=== PATIENT | female | born 1955 | race Caucasian/White ===

== ENCOUNTER 2021-09-22 18:58 | Inpatient (IN) ==
[2021-09-22] MEDS ORDERED: Morphine Sulfate 2 MG/ML SYRINGE IVP ONE (21:57)
[2021-09-22] MEDS ORDERED: Melatonin 3 MG TABLET PO PRN (22:15)
[2021-09-22] MEDS ORDERED: Naloxone 0.4 MG/ML INJ IVP PRN (22:15)
[2021-09-22 22:22] LABS: ABG Base Excess -3 mEq/L (-2 to 3); ABG HCO3 21 mEq/L (21-27); ABG Oxygen Saturation 100 % (95-98); ABG PCO2 35 mmHg (35-45); ABG PH 7.39 pH Units (7.32-7.45); ABG PO2 214 mmHg (85-104); ABG TCO2 22 mEq/L (20-26); Blood Gas Modality CPAP/PS; Blood Gas Pressure Support 10 cm H2O
[2021-09-22] MEDS ORDERED: *HR* LORazepam 2 MG/ML VIAL IVP PRN (22:39)
[2021-09-22] MEDS ORDERED: *HR* Heparin 5,000 UNIT/ML VIAL IVP PRN ×2 (23:07)
[2021-09-22] MEDS ORDERED: Dextrose Gel 15 GM/37.5 ML TUBE PO PRN ×2 (23:25)
[2021-09-22] MEDS ORDERED: D5% in Water 1,000 ML IVC PRN (23:25)
[2021-09-22] MEDS ORDERED: *HR* Dextrose 50 % in Water (Syg) 50 ML SYRINGE IVP PRN (23:25)
[2021-09-22 23:26] LABS: Hematocrit 37.1 % (35.3-44.9); Hemoglobin 12.5 g/dL (11.5-15.4); Immature Granulocytes % 0.3 % (0-4); Lymphocytes # 0.2 K/mcL (0.6-4.6); Mean Corpuscular HGB Conc 33.7 g/dL (31.6-35.5); Mean Corpuscular Hemoglobin 32.2 pg (28.0-33.3); Mean Corpuscular Volume 95.6 fL (83.0-100.0); Mean Platelet Volume 10.4 fL (9.4-12.4); Monocytes # 0.1 K/mcL (0.0-1.3); Monocytes % 1.8 %; Neutrophils # 6.4 K/mcL (1.6-8.9); Platelet Count 116 K/mcL (140-400); Red Blood Count 3.88 M/mcL (3.82-4.97); Red Cell Distribution Width 16.1 % (11.5-14.5); Segmented Neutrophils % 94.9 %; White Blood Count 6.7 K/mcL (4.3-11.1)
[2021-09-22] MEDS ORDERED: Dexamethasone Sodium Phos/PF 10 MG/ML VIAL IVP STA (23:27)
[2021-09-22 23:28] LABS: Heparin anti-factor XA UFH 0.85 IU/mL (0.30-0.70)
[2021-09-22 23:29] LABS: Prothrombin Time 11.6 Seconds (9.4-12.1)
[2021-09-22 23:31] LABS: Activated Partial Thrombo Time 74.7 Seconds (26.0-36.0)
[2021-09-22 23:33] LABS: VBG Ionized Calcium 1.09 mmol/L (1.15-1.35)
[2021-09-22] MEDS: Heparin 25,000UNIT/250ML 1/2NS 25,000 UNIT/250 ML IV.SOLN IVC SCH (23:53)
[2021-09-23] MEDS: Ipratropium 1 PUFF INHALER IH SCH ×6 (00:03→20:05)
[2021-09-23 00:54] LABS: Alanine Aminotransferase 69 Units/L (7-52); Albumin 3.8 g/dL (3.5-5.7); Albumin/Globulin Ratio 1.2 (1.1-2.2); Alkaline Phosphatase 87 Units/L (34-104); Aspartate Amino Transferase 110 Units/L (13-39); BUN/Creatinine Ratio 28 (6-26); Bilirubin,Total 0.3 mg/dL (0.3-1.0); Blood Urea Nitrogen 39 mg/dL (8-23); C-Reactive Protein 167 mg/L (Less than 10); Calcium 8.5 mg/dL (8.6-10.3); Carbon Dioxide 18 mEq/L (23-29); Chloride 109 mEq/L (98-107); Ferritin > 1500 ng/mL (10-120); Globulin 3.1 g/dL (2.4-3.5); Glucose 180 mg/dL (70-105); Lactate Dehydrogenase 610 Units/L (140-271); Magnesium 2.2 mg/dL (1.6-2.6); Osmolality,Calculated 302 (280-300); Phosphorous 2.6 mg/dL (2.7-4.5); Sodium 139 mEq/L (136-145); Total Protein 6.9 g/dL (6.4-8.9); eGFR For African Americans 46 (> 60); eGFR For Non-African Americans 38 (> 60)
[2021-09-23] MEDS ORDERED: Calcium Gluconate 1gm/50mL 1 GM/50 ML BAG IVPB ONE (01:59)
[2021-09-23] MEDS ORDERED: Perflutren Lipid Microsphere 1.3 ML in 0.9 % Sodium Chloride 8.7 ML IVP PRN (03:08)
[2021-09-23 03:14] LABS: Estimated Average Glucose 126 mg/dl
[2021-09-23 03:17] LABS: Prothrombin Time 11.6 Seconds (9.4-12.1)
[2021-09-23 03:19] LABS: Activated Partial Thrombo Time 72.3 Seconds (26.0-36.0)
[2021-09-23] MEDS ORDERED: Acetaminophen 325 MG TABLET PO PRN (04:05)
[2021-09-23 04:24] LABS: Hematocrit 40.6 % (35.3-44.9); Hemoglobin 12.9 g/dL (11.5-15.4); Immature Granulocytes % 0.6 % (0-4); Immature Platelets 6.7 % (1.1-6.1); Lymphocytes # 0.3 K/mcL (0.6-4.6); Lymphocytes % 3.8 %; Mean Corpuscular HGB Conc 31.8 g/dL (31.6-35.5); Mean Corpuscular Hemoglobin 31.2 pg (28.0-33.3); Mean Corpuscular Volume 98.1 fL (83.0-100.0); Mean Platelet Volume 10.6 fL (9.4-12.4); Monocytes # 0.1 K/mcL (0.0-1.3); Neutrophils # 6.3 K/mcL (1.6-8.9); Platelet Count 121 K/mcL (140-400); Red Blood Count 4.14 M/mcL (3.82-4.97); Red Cell Distribution Width 16.3 % (11.5-14.5); Segmented Neutrophils % 93.6 %; White Blood Count 6.7 K/mcL (4.3-11.1)
[2021-09-23 04:32] LABS: Alanine Aminotransferase 70 Units/L (7-52); Albumin 3.8 g/dL (3.5-5.7); Albumin/Globulin Ratio 1.1 (1.1-2.2); Alkaline Phosphatase 85 Units/L (34-104); Aspartate Amino Transferase 106 Units/L (13-39); BUN/Creatinine Ratio 26 (6-26); Bilirubin,Total 0.3 mg/dL (0.3-1.0); Blood Urea Nitrogen 35 mg/dL (8-23); C-Reactive Protein 199 mg/L (Less than 10); Calcium 8.9 mg/dL (8.6-10.3); Carbon Dioxide 23 mEq/L (23-29); Chloride 109 mEq/L (98-107); Chol/HDL Ratio 3.4 (0-4.9); Cholesterol 126 mg/dL (< 200); Ferritin > 1500 ng/mL (10-120); Globulin 3.4 g/dL (2.4-3.5); Glucose 173 mg/dL (70-105); HDL Cholesterol 37 mg/dL (40-59); LDL Cholesterol,Calculated 63 mg/dL (< 100); Lactate Dehydrogenase 622 Units/L (140-271); Magnesium 2.2 mg/dL (1.6-2.6); Osmolality,Calculated 304 (280-300); Phosphorous 2.8 mg/dL (2.7-4.5); Potassium 4.6 mEq/L (3.5-5.1); Sodium 141 mEq/L (136-145); Total Protein 7.2 g/dL (6.4-8.9); Triglycerides 131 mg/dL (< 150); Troponin I 0.69 ng/mL (< 0.04); eGFR For African Americans 47 (> 60); eGFR For Non-African Americans 39 (> 60)
[2021-09-23] MEDS: Meropenem 1,000 MG in 0.9 % Sodium Chloride Mini Bag 100 ML IVPB SCH ×2 (06:53→17:32)
[2021-09-23] MEDS ORDERED: Remdesivir 200 MG in 0.9 % Sodium Chloride 100 ML IVPB ONE (08:00)
[2021-09-23] MEDS: Artificial Tears SOLN 15 ML BOTTLE BOTH EYES SCH ×4 (08:19→19:56)
[2021-09-23] MEDS: Chlorhexidine Rinse 15 ML MOUTHWASH MM SCH ×2 (08:19→19:56)
[2021-09-23] MEDS: Saline Nasal Spray 44 ML BOTTLE NS SCH ×4 (08:19→19:56)
[2021-09-23] MEDS: Saliva Stimulant 44.3ml BOTTLE PO SCH ×4 (08:19→19:56)
[2021-09-23] MEDS: Dexamethasone Sodium Phos/PF 10 MG/ML VIAL IVP SCH (08:20)
[2021-09-23] MEDS: Pantoprazole 40 MG VIAL IVP SCH (08:20)
[2021-09-23] MEDS: Acetylcysteine 10% 2 ML INHSOL IH SCH ×3 (08:39→20:58)
[2021-09-23] MEDS: Budesonide/Formoterol 160/4.5 1 PUFF INH IH SCH ×2 (09:04→20:05)
[2021-09-23 09:45] LABS: Troponin I 0.55 ng/mL (< 0.04)
[2021-09-23 10:28] LABS: Amorphous Sediment,Urine Few per hpf (None-Few); Bacteria,Urine Few per hpf (None-Few); Bilirubin,Urine Negative (Negative); Blood,Urine Moderate (Negative); Clarity,Urine Clear (Clear); Color,Urine Light-Yellow (Yellow); Glucose,Urine (UA) Normal (Normal); Ketones,Urine Negative (Negative); Leukocyte Esterase,Urine Negative (Negative); Mucus,Urine Few per lpf (None-Few); Nitrite,Urine Negative (Negative); Protein,Urine 70 mg/dL (Neg-Trace); RBC,Urine 30-50 per hpf (0-3); Specific Gravity,Urine > 1.030 (1.010-1.025); Squamous Epithelial Cell,Urine Few per hpf (None-Few); Urobilinogen,Urine Normal (Normal)
[2021-09-23] MEDS: Aspirin 81 MG TAB.CHEW PO SCH (11:26)
[2021-09-23] MEDS: Metoprolol XL (24 HR) Succ 25 MG TAB.ER.24H PO SCH (11:26)
[2021-09-23] MEDS: Lactobacillus 1 EACH CAP.SPRINK PO SCH ×2 (11:26→19:56)
[2021-09-23] MEDS: Morphine Sulfate 2 MG/ML SYRINGE IVP PRN ×2 (12:35→20:19)
[2021-09-23 12:41] LABS: Triiodothyronine (T3) Total 50 ng/dL (87-178)
[2021-09-24] MEDS: Ipratropium 1 PUFF INHALER IH SCH ×7 (00:01→23:52)
[2021-09-24 04:25] LABS: ABG Base Excess 0 mEq/L (-2 to 3); ABG HCO3 25 mEq/L (21-27); ABG Oxygen Saturation 94 % (95-98); ABG PCO2 41 mmHg (35-45); ABG PO2 72 mmHg (85-104); ABG TCO2 26 mEq/L (20-26); Blood Gas Modality CPAP/PS; Blood Gas Pressure Support 10 cm H2O
[2021-09-24] MEDS: Meropenem 1,000 MG in 0.9 % Sodium Chloride Mini Bag 100 ML IVPB SCH (05:33)
[2021-09-24 06:17] LABS: Heparin anti-factor XA UFH 0.41 IU/mL (0.30-0.70)
[2021-09-24 06:28] LABS: Alanine Aminotransferase 51 Units/L (7-52); Albumin 3.8 g/dL (3.5-5.7); Albumin/Globulin Ratio 1.2 (1.1-2.2); Alkaline Phosphatase 90 Units/L (34-104); Aspartate Amino Transferase 71 Units/L (13-39); Bilirubin,Direct 0.1 mg/dL (0.0-0.2); Bilirubin,Indirect 0.3 mg/dL (0.0-1.0); Bilirubin,Total 0.4 mg/dL (0.3-1.0); Globulin 3.1 g/dL (2.4-3.5); Total Protein 6.9 g/dL (6.4-8.9)
[2021-09-24 06:31] LABS: Lactate Dehydrogenase 658 Units/L (140-271)
[2021-09-24] MEDS: Morphine Sulfate 2 MG/ML SYRINGE IVP PRN ×2 (07:00→12:36)
[2021-09-24] MEDS: Acetylcysteine 10% 2 ML INHSOL IH SCH ×3 (07:20→20:03)
[2021-09-24] MEDS: Budesonide/Formoterol 160/4.5 1 PUFF INH IH SCH ×2 (07:21→20:03)
[2021-09-24] MEDS ORDERED: Artificial Tears SOLN 15 ML BOTTLE BOTH EYES PRN (07:49)
[2021-09-24] MEDS ORDERED: Saline Nasal Spray 44 ML BOTTLE NS PRN (07:49)
[2021-09-24] MEDS ORDERED: Saliva Stimulant 44.3ml BOTTLE PO PRN (07:49)
[2021-09-24] MEDS: Metoprolol XL (24 HR) Succ 25 MG TAB.ER.24H PO SCH (07:50)
[2021-09-24] MEDS: Aspirin 81 MG TAB.CHEW PO SCH (07:50)
[2021-09-24] MEDS: Lactobacillus 1 EACH CAP.SPRINK PO SCH ×2 (07:50→20:12)
[2021-09-24 08:09] LABS: Hematocrit 40.5 % (35.3-44.9); Hemoglobin 12.8 g/dL (11.5-15.4); Immature Granulocytes % 0.7 % (0-4); Lymphocytes % 3.3 %; Mean Corpuscular HGB Conc 31.6 g/dL (31.6-35.5); Mean Corpuscular Hemoglobin 31.4 pg (28.0-33.3); Mean Corpuscular Volume 99.3 fL (83.0-100.0); Monocytes % 4.3 %; Platelet Count 142 K/mcL (140-400); Red Blood Count 4.08 M/mcL (3.82-4.97); Red Cell Distribution Width 16.7 % (11.5-14.5); Segmented Neutrophils % 91.5 %; White Blood Count 9.4 K/mcL (4.3-11.1)
[2021-09-24 08:10] LABS: Basophils % 0.2 %; Lymphocytes # 0.3 K/mcL (0.6-4.6); Monocytes # 0.4 K/mcL (0.0-1.3); Neutrophils # 8.6 K/mcL (1.6-8.9)
[2021-09-24] MEDS: Remdesivir 100 MG in 0.9 % Sodium Chloride 100 ML IVPB SCH (08:28)
[2021-09-24] MEDS: Pantoprazole 40 MG VIAL IVP SCH (08:28)
[2021-09-24] MEDS: Chlorhexidine Rinse 15 ML MOUTHWASH MM SCH ×2 (08:28→21:27)
[2021-09-24] MEDS: Dexamethasone Sodium Phos/PF 10 MG/ML VIAL IVP SCH (08:28)
[2021-09-24 08:30] LABS: Platelet Estimate Normal (Normal)
[2021-09-24 08:31] LABS: Toxic Granulation Present (Not Present)
[2021-09-24 09:27] LABS: C-Reactive Protein 186 mg/L (Less than 10); Ferritin > 1500 ng/mL (10-120)
[2021-09-24 09:30] LABS: BUN/Creatinine Ratio 34 (6-26); Blood Urea Nitrogen 30 mg/dL (8-23); Calcium 8.8 mg/dL (8.6-10.3); Carbon Dioxide 21 mEq/L (23-29); Chloride 112 mEq/L (98-107); Glucose 151 mg/dL (70-105); Osmolality,Calculated 309 (280-300); Potassium 4.8 mEq/L (3.5-5.1); Sodium 145 mEq/L (136-145); eGFR For African Americans > 60 (> 60); eGFR For Non-African Americans > 60 (> 60)
[2021-09-24] MEDS: Heparin 25,000UNIT/250ML 1/2NS 25,000 UNIT/250 ML IV.SOLN IVC SCH (12:40)
[2021-09-24] MEDS ORDERED: Furosemide 40 MG/4 ML VIAL IVP ONE (16:00)
[2021-09-24] MEDS: levoFLOXacin 750 MG/150 ML 750 MG/150 ML BAG IVPB SCH (18:31)
[2021-09-24] MEDS: Furosemide 40 MG/4 ML VIAL IVP SCH (21:32)
[2021-09-25] MEDS: Ipratropium 1 PUFF INHALER IH SCH ×6 (04:11→23:58)
[2021-09-25] MEDS: Morphine Sulfate 2 MG/ML SYRINGE IVP PRN ×2 (05:11→16:53)
[2021-09-25 05:34] LABS: C-Reactive Protein 122 mg/L (Less than 10); Lactate Dehydrogenase 660 Units/L (140-271)
[2021-09-25 05:35] LABS: Albumin 4.1 g/dL (3.5-5.7); Albumin/Globulin Ratio 1.2 (1.1-2.2); Bilirubin,Direct 0.1 mg/dL (0.0-0.2); Bilirubin,Indirect 0.5 mg/dL (0.0-1.0); Bilirubin,Total 0.6 mg/dL (0.3-1.0); Globulin 3.4 g/dL (2.4-3.5); Total Protein 7.5 g/dL (6.4-8.9)
[2021-09-25 05:54] LABS: Ferritin > 1500 ng/mL (10-120)
[2021-09-25] MEDS: Aspirin 81 MG TAB.CHEW PO SCH (07:22)
[2021-09-25] MEDS: Metoprolol XL (24 HR) Succ 25 MG TAB.ER.24H PO SCH ×2 (07:23→09:41)
[2021-09-25] MEDS: Lactobacillus 1 EACH CAP.SPRINK PO SCH ×2 (07:23→22:04)
[2021-09-25] MEDS: Acetylcysteine 10% 2 ML INHSOL IH SCH ×2 (07:59→15:15)
[2021-09-25] MEDS: Budesonide/Formoterol 160/4.5 1 PUFF INH IH SCH ×2 (08:01→20:14)
[2021-09-25] MEDS: Furosemide 40 MG/4 ML VIAL IVP SCH (08:05)
[2021-09-25] MEDS: Remdesivir 100 MG in 0.9 % Sodium Chloride 100 ML IVPB SCH (08:05)
[2021-09-25] MEDS: Pantoprazole 40 MG VIAL IVP SCH (08:05)
[2021-09-25] MEDS: Chlorhexidine Rinse 15 ML MOUTHWASH MM SCH ×2 (08:05→22:04)
[2021-09-25] MEDS: Dexamethasone Sodium Phos/PF 10 MG/ML VIAL IVP SCH (08:06)
[2021-09-25] MEDS: *HR* LORazepam 2 MG/ML VIAL IVP PRN (08:16)
[2021-09-25] MEDS: Heparin 25,000UNIT/250ML 1/2NS 25,000 UNIT/250 ML IV.SOLN IVC SCH (09:21)
[2021-09-25 11:26] LABS: Basophils % 0.3 %; Hematocrit 43.9 % (35.3-44.9); Hemoglobin 14.1 g/dL (11.5-15.4); Immature Granulocytes % 0.8 % (0-4); Lymphocytes # 0.2 K/mcL (0.6-4.6); Lymphocytes % 1.9 %; Mean Corpuscular HGB Conc 32.1 g/dL (31.6-35.5); Mean Corpuscular Hemoglobin 31.4 pg (28.0-33.3); Mean Corpuscular Volume 97.8 fL (83.0-100.0); Mean Platelet Volume 10.5 fL (9.4-12.4); Monocytes # 0.5 K/mcL (0.0-1.3); Monocytes % 4.3 %; Neutrophils # 10.4 K/mcL (1.6-8.9); Nucleated Red Blood Cells 0.5 /100 WBC (0); Platelet Count 171 K/mcL (140-400); Red Blood Count 4.49 M/mcL (3.82-4.97); Red Cell Distribution Width 16.9 % (11.5-14.5); Segmented Neutrophils % 92.7 %; White Blood Count 11.2 K/mcL (4.3-11.1)
[2021-09-25] MEDS: *HR* OxyCODONE Immed Rel 5 MG TABLET PO PRN (11:40)
[2021-09-25 11:46] LABS: BUN/Creatinine Ratio 37 (6-26); Blood Urea Nitrogen 37 mg/dL (8-23); Calcium 9.2 mg/dL (8.6-10.3); Carbon Dioxide 28 mEq/L (23-29); Chloride 107 mEq/L (98-107); Glucose 218 mg/dL (70-105); Osmolality,Calculated 321 (280-300); Potassium 3.8 mEq/L (3.5-5.1); Sodium 148 mEq/L (136-145); eGFR For African Americans > 60 (> 60); eGFR For Non-African Americans 55 (> 60)
[2021-09-25] MEDS: amLODIPine 5 MG TABLET PO SCH (12:58)
[2021-09-25] MEDS: Isosorbide MONOnitrate (24 HR) 30 MG TAB.ER.24H PO SCH (12:58)
[2021-09-25] MEDS ORDERED: Isovue-370 500 ML BOTTLE IVP ONE (14:46)
[2021-09-25] MEDS: levoFLOXacin 750 MG/150 ML 750 MG/150 ML BAG IVPB SCH (16:53)
[2021-09-26] MEDS: Acetylcysteine 10% 2 ML INHSOL IH SCH ×4 (00:20→20:16)
[2021-09-26 02:18] LABS: White Blood Count 10.6 K/mcL (4.3-11.1)
[2021-09-26 02:19] LABS: Basophils % 0.3 %; Hematocrit 40.8 % (35.3-44.9); Hemoglobin 12.9 g/dL (11.5-15.4); Immature Granulocytes % 1.3 % (0-4); Lymphocytes # 0.2 K/mcL (0.6-4.6); Lymphocytes % 1.5 %; Mean Corpuscular HGB Conc 31.6 g/dL (31.6-35.5); Mean Corpuscular Volume 98.1 fL (83.0-100.0); Mean Platelet Volume 10.5 fL (9.4-12.4); Monocytes # 0.6 K/mcL (0.0-1.3); Monocytes % 5.6 %; Neutrophils # 9.7 K/mcL (1.6-8.9); Nucleated Red Blood Cells 0.6 /100 WBC (0); Platelet Count 178 K/mcL (140-400); Red Blood Count 4.16 M/mcL (3.82-4.97); Red Cell Distribution Width 16.8 % (11.5-14.5); Segmented Neutrophils % 91.3 %
[2021-09-26 02:41] LABS: Alanine Aminotransferase 42 Units/L (7-52); Albumin 3.8 g/dL (3.5-5.7); Albumin/Globulin Ratio 1.2 (1.1-2.2); Alkaline Phosphatase 85 Units/L (34-104); Aspartate Amino Transferase 37 Units/L (13-39); BUN/Creatinine Ratio 37 (6-26); Bilirubin,Direct 0.1 mg/dL (0.0-0.2); Bilirubin,Indirect 0.5 mg/dL (0.0-1.0); Bilirubin,Total 0.6 mg/dL (0.3-1.0); Blood Urea Nitrogen 38 mg/dL (8-23); Calcium 9.1 mg/dL (8.6-10.3); Carbon Dioxide 28 mEq/L (23-29); Chloride 104 mEq/L (98-107); Globulin 3.1 g/dL (2.4-3.5); Glucose 152 mg/dL (70-105); Osmolality,Calculated 312 (280-300); Sodium 145 mEq/L (136-145); Total Protein 6.9 g/dL (6.4-8.9); eGFR For African Americans > 60 (> 60); eGFR For Non-African Americans 53 (> 60)
[2021-09-26] MEDS: Ipratropium 1 PUFF INHALER IH SCH ×6 (03:55→23:46)
[2021-09-26] MEDS: *HR* OxyCODONE Immed Rel 5 MG TABLET PO PRN (06:40)
[2021-09-26] MEDS: Budesonide/Formoterol 160/4.5 1 PUFF INH IH SCH ×2 (08:03→20:24)
[2021-09-26] MEDS: Lactobacillus 1 EACH CAP.SPRINK PO SCH ×2 (08:40→19:47)
[2021-09-26] MEDS: Remdesivir 100 MG in 0.9 % Sodium Chloride 100 ML IVPB SCH (08:40)
[2021-09-26] MEDS: Aspirin 81 MG TAB.CHEW PO SCH (08:40)
[2021-09-26] MEDS: Chlorhexidine Rinse 15 ML MOUTHWASH MM SCH ×2 (08:40→19:47)
[2021-09-26] MEDS: Isosorbide MONOnitrate (24 HR) 30 MG TAB.ER.24H PO SCH (09:00)
[2021-09-26] MEDS ORDERED: amLODIPine 5 MG TABLET PO SCH (09:00)
[2021-09-26] MEDS ORDERED: Furosemide 40 MG/4 ML VIAL IVP SCH ×2 (09:00)
[2021-09-26] MEDS: Vancomycin 1,250 MG/262.5 ML IV.SOLN IVPB SCH (11:38)
[2021-09-26] MEDS: Dexamethasone Sodium Phos/PF 10 MG/ML VIAL IVP SCH (18:44)
[2021-09-26] MEDS: levoFLOXacin 750 MG/150 ML 750 MG/150 ML BAG IVPB SCH (19:46)
[2021-09-27] MEDS: Ipratropium 1 PUFF INHALER IH SCH ×5 (03:46→20:20)
[2021-09-27] MEDS: Budesonide/Formoterol 160/4.5 1 PUFF INH IH SCH ×2 (07:22→20:21)
[2021-09-27] MEDS: Acetylcysteine 10% 2 ML INHSOL IH SCH ×2 (07:22→15:02)
[2021-09-27 08:06] LABS: Albumin 3.6 g/dL (3.5-5.7); Albumin/Globulin Ratio 1.4 (1.1-2.2); Bilirubin,Direct 0.1 mg/dL (0.0-0.2); Bilirubin,Indirect 0.6 mg/dL (0.0-1.0); Bilirubin,Total 0.7 mg/dL (0.3-1.0); Globulin 2.6 g/dL (2.4-3.5); Total Protein 6.2 g/dL (6.4-8.9)
[2021-09-27 09:37] LABS: Basophils % 0.4 %; Hemoglobin 12.6 g/dL (11.5-15.4); Immature Granulocytes % 1.5 % (0-4); Lymphocytes # 0.1 K/mcL (0.6-4.6); Lymphocytes % 1.1 %; Mean Corpuscular HGB Conc 32.3 g/dL (31.6-35.5); Mean Corpuscular Hemoglobin 31.4 pg (28.0-33.3); Mean Corpuscular Volume 97.3 fL (83.0-100.0); Mean Platelet Volume 10.4 fL (9.4-12.4); Monocytes # 0.7 K/mcL (0.0-1.3); Neutrophils # 10.3 K/mcL (1.6-8.9); Nucleated Red Blood Cells 0.4 /100 WBC (0); Platelet Count 172 K/mcL (140-400); Red Blood Count 4.01 M/mcL (3.82-4.97); Red Cell Distribution Width 16.6 % (11.5-14.5); White Blood Count 11.3 K/mcL (4.3-11.1)
[2021-09-27 09:38] LABS: Basophils # 0.1 K/mcL (0.0-0.2)
[2021-09-27] MEDS: Remdesivir 100 MG in 0.9 % Sodium Chloride 100 ML IVPB SCH (09:44)
[2021-09-27] MEDS: Pantoprazole 40 MG VIAL IVP SCH ×2 (09:46→09:48)
[2021-09-27] MEDS: Isosorbide MONOnitrate (24 HR) 30 MG TAB.ER.24H PO SCH (09:47)
[2021-09-27] MEDS: Aspirin 81 MG TAB.CHEW PO SCH (09:47)
[2021-09-27] MEDS: Lactobacillus 1 EACH CAP.SPRINK PO SCH ×2 (09:47→21:23)
[2021-09-27] MEDS: Metoprolol XL (24 HR) Succ 25 MG TAB.ER.24H PO SCH ×2 (09:47→09:48)
[2021-09-27] MEDS: amLODIPine 5 MG TABLET PO SCH (09:48)
[2021-09-27] MEDS: Chlorhexidine Rinse 15 ML MOUTHWASH MM SCH ×2 (09:48→21:23)
[2021-09-27] MEDS: Furosemide 40 MG/4 ML VIAL IVP SCH (09:49)
[2021-09-27] MEDS: Dexamethasone Sodium Phos/PF 10 MG/ML VIAL IVP SCH (09:49)
[2021-09-27 09:55] LABS: BUN/Creatinine Ratio 37 (6-26); Blood Urea Nitrogen 35 mg/dL (8-23); Calcium 8.7 mg/dL (8.6-10.3); Carbon Dioxide 31 mEq/L (23-29); Chloride 105 mEq/L (98-107); Glucose 195 mg/dL (70-105); Osmolality,Calculated 311 (280-300); Potassium 3.8 mEq/L (3.5-5.1); Sodium 144 mEq/L (136-145); eGFR For African Americans > 60 (> 60); eGFR For Non-African Americans 58 (> 60)
[2021-09-27 09:57] LABS: Anisocytosis 1+ (Not Present)
[2021-09-27 09:58] LABS: Platelet Estimate Normal (Normal)
[2021-09-27 10:17] LABS: Mycoplasma pneumoniae IgG 0.07 U/L (<=0.09)
[2021-09-27] MEDS: *HR* OxyCODONE Immed Rel 5 MG TABLET PO PRN (10:20)
[2021-09-27] MEDS: Vancomycin 1,250 MG/262.5 ML IV.SOLN IVPB SCH (13:14)
[2021-09-27] MEDS ORDERED: Furosemide 40 MG/4 ML VIAL IVP ONE (15:26)
[2021-09-27] MEDS: *HR* LORazepam 2 MG/ML VIAL IVP PRN ×2 (17:11→21:22)
[2021-09-27] MEDS: levoFLOXacin 750 MG/150 ML 750 MG/150 ML BAG IVPB SCH (17:34)
[2021-09-27] MEDS: Morphine Sulfate 2 MG/ML SYRINGE IVP PRN (20:58)
[2021-09-28] MEDS: Ipratropium 1 PUFF INHALER IH SCH ×7 (00:12→23:55)
[2021-09-28 05:08] LABS: Basophils # 0.1 K/mcL (0.0-0.2); Basophils % 0.4 %; Hematocrit 38.9 % (35.3-44.9); Hemoglobin 12.3 g/dL (11.5-15.4); Immature Granulocytes % 1.6 % (0-4); Lymphocytes # 0.3 K/mcL (0.6-4.6); Lymphocytes % 2.3 %; Mean Corpuscular HGB Conc 31.6 g/dL (31.6-35.5); Mean Corpuscular Hemoglobin 30.9 pg (28.0-33.3); Mean Corpuscular Volume 97.7 fL (83.0-100.0); Mean Platelet Volume 10.8 fL (9.4-12.4); Monocytes # 0.5 K/mcL (0.0-1.3); Monocytes % 3.9 %; Neutrophils # 12.4 K/mcL (1.6-8.9); Nucleated Red Blood Cells 0.2 /100 WBC (0); Platelet Count 174 K/mcL (140-400); Red Blood Count 3.98 M/mcL (3.82-4.97); Red Cell Distribution Width 16.5 % (11.5-14.5); Segmented Neutrophils % 91.8 %; White Blood Count 13.5 K/mcL (4.3-11.1)
[2021-09-28 05:31] LABS: Albumin 3.6 g/dL (3.5-5.7); Albumin/Globulin Ratio 1.3 (1.1-2.2); Bilirubin,Direct 0.1 mg/dL (0.0-0.2); Bilirubin,Indirect 0.5 mg/dL (0.0-1.0); Bilirubin,Total 0.6 mg/dL (0.3-1.0); Globulin 2.8 g/dL (2.4-3.5); Total Protein 6.4 g/dL (6.4-8.9)
[2021-09-28 05:32] LABS: BUN/Creatinine Ratio 40 (6-26); Blood Urea Nitrogen 38 mg/dL (8-23); Calcium 8.1 mg/dL (8.6-10.3); Carbon Dioxide 26 mEq/L (23-29); Chloride 105 mEq/L (98-107); Glucose 189 mg/dL (70-105); Osmolality,Calculated 310 (280-300); Potassium 3.7 mEq/L (3.5-5.1); Sodium 143 mEq/L (136-145); eGFR For African Americans > 60 (> 60); eGFR For Non-African Americans 59 (> 60)
[2021-09-28] MEDS: Budesonide/Formoterol 160/4.5 1 PUFF INH IH SCH ×2 (07:44→20:40)
[2021-09-28] MEDS: Furosemide 40 MG/4 ML VIAL IVP SCH (08:13)
[2021-09-28] MEDS: Pantoprazole 40 MG VIAL IVP SCH (08:13)
[2021-09-28] MEDS: Dexamethasone Sodium Phos/PF 10 MG/ML VIAL IVP SCH (08:14)
[2021-09-28] MEDS: Isosorbide MONOnitrate (24 HR) 30 MG TAB.ER.24H PO SCH (08:14)
[2021-09-28] MEDS: Aspirin 81 MG TAB.CHEW PO SCH (08:14)
[2021-09-28] MEDS: amLODIPine 5 MG TABLET PO SCH (08:14)
[2021-09-28] MEDS: Metoprolol XL (24 HR) Succ 25 MG TAB.ER.24H PO SCH (08:14)
[2021-09-28] MEDS: Lactobacillus 1 EACH CAP.SPRINK PO SCH ×2 (08:14→20:45)
[2021-09-28] MEDS: Chlorhexidine Rinse 15 ML MOUTHWASH MM SCH ×2 (08:14→20:45)
[2021-09-28] MEDS: Heparin 25,000UNIT/250ML 1/2NS 25,000 UNIT/250 ML IV.SOLN IVC SCH ×2 (08:31→12:07)
[2021-09-28] MEDS: Vancomycin 1,250 MG/262.5 ML IV.SOLN IVPB SCH (10:56)
[2021-09-28] MEDS: Morphine Sulfate 2 MG/ML SYRINGE IVP PRN ×2 (11:43→20:44)
[2021-09-28] MEDS: levoFLOXacin 750 MG/150 ML 750 MG/150 ML BAG IVPB SCH (17:20)
[2021-09-29] MEDS: Ipratropium 1 PUFF INHALER IH SCH ×5 (04:16→20:22)
[2021-09-29] MEDS: Budesonide/Formoterol 160/4.5 1 PUFF INH IH SCH ×2 (08:08→20:23)
[2021-09-29] MEDS: Metoprolol XL (24 HR) Succ 25 MG TAB.ER.24H PO SCH (08:38)
[2021-09-29] MEDS: Furosemide 40 MG/4 ML VIAL IVP SCH (08:38)
[2021-09-29] MEDS: Isosorbide MONOnitrate (24 HR) 30 MG TAB.ER.24H PO SCH (08:38)
[2021-09-29] MEDS: Dexamethasone Sodium Phos/PF 10 MG/ML VIAL IVP SCH (08:38)
[2021-09-29] MEDS: amLODIPine 5 MG TABLET PO SCH (08:38)
[2021-09-29] MEDS: Pantoprazole 40 MG VIAL IVP SCH (08:38)
[2021-09-29] MEDS: Aspirin 81 MG TAB.CHEW PO SCH (08:38)
[2021-09-29] MEDS: Lactobacillus 1 EACH CAP.SPRINK PO SCH ×2 (08:38→19:47)
[2021-09-29] MEDS: *HR* OxyCODONE Immed Rel 5 MG TABLET PO PRN (09:04)
[2021-09-29] MEDS: Chlorhexidine Rinse 15 ML MOUTHWASH MM SCH ×2 (09:39→19:48)
[2021-09-29 10:00] LABS: Basophils % 0.3 %; Hematocrit 35.9 % (35.3-44.9); Hemoglobin 11.8 g/dL (11.5-15.4); Immature Granulocytes % 2.1 % (0-4); Lymphocytes # 0.2 K/mcL (0.6-4.6); Lymphocytes % 2.4 %; Mean Corpuscular HGB Conc 32.9 g/dL (31.6-35.5); Mean Corpuscular Hemoglobin 31.9 pg (28.0-33.3); Mean Platelet Volume 11.1 fL (9.4-12.4); Monocytes # 0.3 K/mcL (0.0-1.3); Monocytes % 3.4 %; Neutrophils # 8.9 K/mcL (1.6-8.9); Platelet Count 165 K/mcL (140-400); Red Cell Distribution Width 16.4 % (11.5-14.5); Segmented Neutrophils % 91.8 %; White Blood Count 9.7 K/mcL (4.3-11.1)
[2021-09-29 10:20] LABS: BUN/Creatinine Ratio 40 (6-26); Blood Urea Nitrogen 34 mg/dL (8-23); Calcium 8.6 mg/dL (8.6-10.3); Carbon Dioxide 28 mEq/L (23-29); Chloride 103 mEq/L (98-107); Glucose 185 mg/dL (70-105); Osmolality,Calculated 304 (280-300); Potassium 3.6 mEq/L (3.5-5.1); Sodium 141 mEq/L (136-145); eGFR For African Americans > 60 (> 60); eGFR For Non-African Americans > 60 (> 60)
[2021-09-29] MEDS: levoFLOXacin 750 MG/150 ML 750 MG/150 ML BAG IVPB SCH (17:48)
[2021-09-29] MEDS: Morphine Sulfate 2 MG/ML SYRINGE IVP PRN (19:48)
[2021-09-30] MEDS: Ipratropium 1 PUFF INHALER IH SCH ×7 (00:05→23:59)
[2021-09-30] MEDS: *HR* OxyCODONE Immed Rel 5 MG TABLET PO PRN ×2 (05:30→14:19)
[2021-09-30] MEDS: Budesonide/Formoterol 160/4.5 1 PUFF INH IH SCH ×2 (08:20→20:47)
[2021-09-30] MEDS: Dexamethasone Sodium Phos/PF 10 MG/ML VIAL IVP SCH (08:57)
[2021-09-30] MEDS: Chlorhexidine Rinse 15 ML MOUTHWASH MM SCH ×2 (08:57→19:52)
[2021-09-30] MEDS: Pantoprazole 40 MG VIAL IVP SCH (08:57)
[2021-09-30] MEDS: amLODIPine 5 MG TABLET PO SCH (08:58)
[2021-09-30] MEDS: Metoprolol XL (24 HR) Succ 25 MG TAB.ER.24H PO SCH (08:58)
[2021-09-30] MEDS: Lactobacillus 1 EACH CAP.SPRINK PO SCH ×2 (08:58→19:52)
[2021-09-30] MEDS: Isosorbide MONOnitrate (24 HR) 30 MG TAB.ER.24H PO SCH (08:58)
[2021-09-30] MEDS: Aspirin 81 MG TAB.CHEW PO SCH (08:58)
[2021-09-30] MEDS: Furosemide 40 MG/4 ML VIAL IVP SCH (08:58)
[2021-09-30 11:43] LABS: Basophils # 0.1 K/mcL (0.0-0.2); Basophils % 0.3 %; Eosinophils % 0.1 %; Hematocrit 35.8 % (35.3-44.9); Hemoglobin 11.9 g/dL (11.5-15.4); Immature Granulocytes % 1.9 % (0-4); Lymphocytes # 0.1 K/mcL (0.6-4.6); Lymphocytes % 0.7 %; Mean Corpuscular HGB Conc 33.2 g/dL (31.6-35.5); Mean Corpuscular Hemoglobin 31.9 pg (28.0-33.3); Monocytes # 0.6 K/mcL (0.0-1.3); Monocytes % 3.3 %; Neutrophils # 17.6 K/mcL (1.6-8.9); Platelet Count 162 K/mcL (140-400); Red Blood Count 3.73 M/mcL (3.82-4.97); Red Cell Distribution Width 16.5 % (11.5-14.5); Segmented Neutrophils % 93.7 %
[2021-09-30 11:45] LABS: White Blood Count 18.8 K/mcL (4.3-11.1)
[2021-09-30 12:01] LABS: BUN/Creatinine Ratio 35 (6-26); Blood Urea Nitrogen 33 mg/dL (8-23); Calcium 8.5 mg/dL (8.6-10.3); Carbon Dioxide 28 mEq/L (23-29); Chloride 103 mEq/L (98-107); Glucose 149 mg/dL (70-105); Osmolality,Calculated 300 (280-300); Sodium 140 mEq/L (136-145); eGFR For African Americans > 60 (> 60); eGFR For Non-African Americans 59 (> 60)
[2021-09-30 12:02] LABS: Platelet Estimate Normal (Normal)
[2021-09-30] MEDS: levoFLOXacin 750 MG/150 ML 750 MG/150 ML BAG IVPB SCH (17:17)
[2021-09-30] MEDS: Morphine Sulfate 2 MG/ML SYRINGE IVP PRN (19:52)
[2021-09-30] MEDS: *HR* LORazepam 2 MG/ML VIAL IVP PRN (23:23)
[2021-10-01] MEDS: Ipratropium 1 PUFF INHALER IH SCH ×6 (04:27→23:31)
[2021-10-01] MEDS: Morphine Sulfate 2 MG/ML SYRINGE IVP PRN (06:36)
[2021-10-01 07:01] LABS: Basophils # 0.1 K/mcL (0.0-0.2); Basophils % 0.4 %; Eosinophils % 0.1 %; Hematocrit 36.6 % (35.3-44.9); Hemoglobin 12.1 g/dL (11.5-15.4); Lymphocytes # 0.2 K/mcL (0.6-4.6); Lymphocytes % 1.4 %; Mean Corpuscular HGB Conc 33.1 g/dL (31.6-35.5); Mean Corpuscular Hemoglobin 31.8 pg (28.0-33.3); Mean Corpuscular Volume 96.3 fL (83.0-100.0); Mean Platelet Volume 11.3 fL (9.4-12.4); Monocytes # 0.6 K/mcL (0.0-1.3); Monocytes % 4.2 %; Platelet Count 160 K/mcL (140-400); Red Cell Distribution Width 16.3 % (11.5-14.5); Segmented Neutrophils % 91.9 %; White Blood Count 15.3 K/mcL (4.3-11.1)
[2021-10-01 07:20] LABS: BUN/Creatinine Ratio 37 (6-26); Blood Urea Nitrogen 31 mg/dL (8-23); Calcium 8.9 mg/dL (8.6-10.3); Carbon Dioxide 28 mEq/L (23-29); Chloride 102 mEq/L (98-107); Glucose 127 mg/dL (70-105); Osmolality,Calculated 292 (280-300); Potassium 4.1 mEq/L (3.5-5.1); Sodium 137 mEq/L (136-145); eGFR For African Americans > 60 (> 60); eGFR For Non-African Americans > 60 (> 60)
[2021-10-01] MEDS: Budesonide/Formoterol 160/4.5 1 PUFF INH IH SCH ×2 (08:00→19:49)
[2021-10-01] MEDS: Furosemide 40 MG/4 ML VIAL IVP SCH (09:02)
[2021-10-01] MEDS: Pantoprazole 40 MG VIAL IVP SCH (09:02)
[2021-10-01] MEDS: Chlorhexidine Rinse 15 ML MOUTHWASH MM SCH ×2 (09:03→20:00)
[2021-10-01] MEDS: Lactobacillus 1 EACH CAP.SPRINK PO SCH ×2 (09:03→20:01)
[2021-10-01] MEDS: Aspirin 81 MG TAB.CHEW PO SCH (09:03)
[2021-10-01] MEDS: Isosorbide MONOnitrate (24 HR) 30 MG TAB.ER.24H PO SCH (09:03)
[2021-10-01] MEDS: amLODIPine 5 MG TABLET PO SCH (09:03)
[2021-10-01] MEDS: Dexamethasone Sodium Phos/PF 10 MG/ML VIAL IVP SCH (09:03)
[2021-10-01] MEDS: Metoprolol XL (24 HR) Succ 25 MG TAB.ER.24H PO SCH (09:03)
[2021-10-01] MEDS: *HR* OxyCODONE Immed Rel 5 MG TABLET PO PRN ×2 (12:16→20:02)
[2021-10-01] MEDS ORDERED: Sennosides/Docusate Sodium TABLET PO PRN (15:59)
[2021-10-01] MEDS: *HR* Heparin 5,000 UNIT/ML VIAL SQ SCH (18:05)
[2021-10-01] MEDS: levoFLOXacin 750 MG/150 ML 750 MG/150 ML BAG IVPB SCH (18:06)
[2021-10-01] MEDS: traZODone 50 MG TABLET PO SCH (20:01)
[2021-10-01] MEDS: rOPINIRole 1 MG TABLET PO SCH (20:01)
[2021-10-01] MEDS: diazePAM 5 MG TABLET PO SCH (20:02)
[2021-10-02] MEDS: *HR* OxyCODONE Immed Rel 5 MG TABLET PO PRN ×3 (02:28→21:16)
[2021-10-02] MEDS: Ipratropium 1 PUFF INHALER IH SCH ×5 (03:34→20:14)
[2021-10-02] MEDS: *HR* Heparin 5,000 UNIT/ML VIAL SQ SCH ×2 (05:31→17:24)
[2021-10-02 06:39] LABS: Basophils % 0.3 %; Hematocrit 51.4 % (35.3-44.9); Immature Granulocytes % 1.7 % (0-4); Lymphocytes # 0.1 K/mcL (0.6-4.6); Lymphocytes % 0.8 %; Mean Corpuscular HGB Conc 33.7 g/dL (31.6-35.5); Mean Corpuscular Hemoglobin 31.7 pg (28.0-33.3); Mean Corpuscular Volume 94.3 fL (83.0-100.0); Mean Platelet Volume 11.6 fL (9.4-12.4); Monocytes # 0.5 K/mcL (0.0-1.3); Monocytes % 3.8 %; Neutrophils # 13.1 K/mcL (1.6-8.9); Platelet Count 134 K/mcL (140-400); Red Blood Count 5.45 M/mcL (3.82-4.97); Red Cell Distribution Width 16.1 % (11.5-14.5); Segmented Neutrophils % 93.4 %
[2021-10-02 06:40] LABS: Hemoglobin 17.3 g/dL (11.5-15.4)
[2021-10-02 06:52] LABS: BUN/Creatinine Ratio 43 (6-26); Blood Urea Nitrogen 32 mg/dL (8-23); Calcium 8.6 mg/dL (8.6-10.3); Carbon Dioxide 25 mEq/L (23-29); Chloride 103 mEq/L (98-107); Glucose 155 mg/dL (70-105); Osmolality,Calculated 298 (280-300); Phosphorous 3.2 mg/dL (2.7-4.5); Potassium 3.9 mEq/L (3.5-5.1); Sodium 139 mEq/L (136-145); eGFR For African Americans > 60 (> 60); eGFR For Non-African Americans > 60 (> 60)
[2021-10-02] MEDS: Budesonide/Formoterol 160/4.5 1 PUFF INH IH SCH ×2 (08:00→20:14)
[2021-10-02] MEDS: Lactobacillus 1 EACH CAP.SPRINK PO SCH ×2 (08:50→21:14)
[2021-10-02] MEDS: amLODIPine 5 MG TABLET PO SCH (08:51)
[2021-10-02] MEDS: Dexamethasone Sodium Phos/PF 10 MG/ML VIAL IVP SCH (08:51)
[2021-10-02] MEDS: Metoprolol XL (24 HR) Succ 25 MG TAB.ER.24H PO SCH (08:51)
[2021-10-02] MEDS: Chlorhexidine Rinse 15 ML MOUTHWASH MM SCH ×2 (08:51→21:14)
[2021-10-02] MEDS: Isosorbide MONOnitrate (24 HR) 30 MG TAB.ER.24H PO SCH (08:51)
[2021-10-02] MEDS: diazePAM 5 MG TABLET PO SCH ×2 (08:51→21:16)
[2021-10-02] MEDS: Aspirin 81 MG TAB.CHEW PO SCH (08:51)
[2021-10-02] MEDS: Furosemide 40 MG/4 ML VIAL IVP SCH (08:52)
[2021-10-02] MEDS: Morphine Sulfate 2 MG/ML SYRINGE IVP PRN (12:09)
[2021-10-02] MEDS ORDERED: 0.9 % Sodium Chloride 500 ML IVC PRN (16:24)
[2021-10-02] MEDS: levoFLOXacin 750 MG/150 ML 750 MG/150 ML BAG IVPB SCH (17:24)
[2021-10-02] MEDS ORDERED: Doxycycline 100 MG CAPSULE PO SCH (21:00)
[2021-10-02] MEDS: traZODone 50 MG TABLET PO SCH (21:15)
[2021-10-02] MEDS: rOPINIRole 1 MG TABLET PO SCH (21:15)
[2021-10-03] MEDS: Ipratropium 1 PUFF INHALER IH SCH ×7 (00:06→23:54)
[2021-10-03] MEDS: *HR* Heparin 5,000 UNIT/ML VIAL SQ SCH ×2 (05:44→17:37)
[2021-10-03 06:15] LABS: Basophils % 0.2 %; Eosinophils % 0.1 %; Hematocrit 32.5 % (35.3-44.9); Immature Granulocytes % 1.7 % (0-4); Lymphocytes # 0.2 K/mcL (0.6-4.6); Lymphocytes % 1.1 %; Mean Corpuscular HGB Conc 33.2 g/dL (31.6-35.5); Mean Corpuscular Hemoglobin 31.8 pg (28.0-33.3); Mean Corpuscular Volume 95.6 fL (83.0-100.0); Mean Platelet Volume 11.6 fL (9.4-12.4); Monocytes # 0.8 K/mcL (0.0-1.3); Monocytes % 5.2 %; Neutrophils # 14.7 K/mcL (1.6-8.9); Platelet Count 144 K/mcL (140-400); Red Cell Distribution Width 15.8 % (11.5-14.5); Segmented Neutrophils % 91.7 %
[2021-10-03 06:16] LABS: Hemoglobin 10.8 g/dL (11.5-15.4)
[2021-10-03] MEDS: Aspirin 81 MG TAB.CHEW PO SCH (08:23)
[2021-10-03] MEDS: Furosemide 40 MG/4 ML VIAL IVP SCH (08:23)
[2021-10-03] MEDS: Dexamethasone Sodium Phos/PF 10 MG/ML VIAL IVP SCH (08:23)
[2021-10-03] MEDS: Chlorhexidine Rinse 15 ML MOUTHWASH MM SCH ×2 (08:24→20:30)
[2021-10-03] MEDS: diazePAM 5 MG TABLET PO SCH ×2 (08:37→20:31)
[2021-10-03] MEDS: Lactobacillus 1 EACH CAP.SPRINK PO SCH ×2 (08:37→20:30)
[2021-10-03 09:09] LABS: BUN/Creatinine Ratio 47 (6-26); Blood Urea Nitrogen 37 mg/dL (8-23); Calcium 8.7 mg/dL (8.6-10.3); Carbon Dioxide 26 mEq/L (23-29); Chloride 102 mEq/L (98-107); Glucose 130 mg/dL (70-105); Osmolality,Calculated 294 (280-300); Phosphorous 3.2 mg/dL (2.7-4.5); Potassium 4.1 mEq/L (3.5-5.1); Sodium 137 mEq/L (136-145); eGFR For African Americans > 60 (> 60); eGFR For Non-African Americans > 60 (> 60)
[2021-10-03 10:25] LABS: C-Reactive Protein 25 mg/L (Less than 10)
[2021-10-03] MEDS: Budesonide/Formoterol 160/4.5 1 PUFF INH IH SCH ×2 (10:46→20:06)
[2021-10-03] MEDS: Isosorbide MONOnitrate (24 HR) 30 MG TAB.ER.24H PO SCH (10:56)
[2021-10-03] MEDS: amLODIPine 5 MG TABLET PO SCH (10:56)
[2021-10-03] MEDS: Metoprolol XL (24 HR) Succ 25 MG TAB.ER.24H PO SCH (10:56)
[2021-10-03] MEDS: *HR* OxyCODONE Immed Rel 5 MG TABLET PO PRN (16:51)
[2021-10-03] MEDS: levoFLOXacin 750 MG/150 ML 750 MG/150 ML BAG IVPB SCH (17:37)
[2021-10-03] MEDS: rOPINIRole 1 MG TABLET PO SCH (20:30)
[2021-10-03] MEDS: traZODone 50 MG TABLET PO SCH (20:31)
[2021-10-04] MEDS: Ipratropium 1 PUFF INHALER IH SCH ×6 (04:20→23:36)
[2021-10-04 05:15] LABS: Basophils % 0.2 %; Mean Corpuscular Volume 95.4 fL (83.0-100.0); Red Cell Distribution Width 15.9 % (11.5-14.5); Segmented Neutrophils % 91.4 %
[2021-10-04 05:17] LABS: Eosinophils % 0.1 %; Hematocrit 31.2 % (35.3-44.9); Hemoglobin 10.2 g/dL (11.5-15.4); Immature Granulocytes % 1.6 % (0-4); Immature Platelets 13.9 % (1.1-6.1); Lymphocytes # 0.2 K/mcL (0.6-4.6); Lymphocytes % 1.3 %; Mean Corpuscular HGB Conc 32.7 g/dL (31.6-35.5); Mean Corpuscular Hemoglobin 31.2 pg (28.0-33.3); Mean Platelet Volume 11.9 fL (9.4-12.4); Monocytes # 0.7 K/mcL (0.0-1.3); Monocytes % 5.4 %; Neutrophils # 11.4 K/mcL (1.6-8.9); Platelet Count 135 K/mcL (140-400); Red Blood Count 3.27 M/mcL (3.82-4.97); White Blood Count 12.5 K/mcL (4.3-11.1)
[2021-10-04 05:29] LABS: BUN/Creatinine Ratio 43 (6-26); Blood Urea Nitrogen 35 mg/dL (8-23); Calcium 8.1 mg/dL (8.6-10.3); Carbon Dioxide 29 mEq/L (23-29); Chloride 102 mEq/L (98-107); Glucose 106 mg/dL (70-105); Magnesium 2.1 mg/dL (1.6-2.6); Osmolality,Calculated 296 (280-300); Phosphorous 2.9 mg/dL (2.7-4.5); Potassium 4.2 mEq/L (3.5-5.1); Sodium 139 mEq/L (136-145); eGFR For African Americans > 60 (> 60); eGFR For Non-African Americans > 60 (> 60)
[2021-10-04 06:07] LABS: Platelet Estimate Slight Decrease (Normal)
[2021-10-04] MEDS: *HR* Heparin 5,000 UNIT/ML VIAL SQ SCH ×2 (06:21→17:21)
[2021-10-04] MEDS: Budesonide/Formoterol 160/4.5 1 PUFF INH IH SCH ×2 (07:49→19:56)
[2021-10-04] MEDS: Dexamethasone Sodium Phos/PF 10 MG/ML VIAL IVP SCH (07:58)
[2021-10-04] MEDS: Aspirin 81 MG TAB.CHEW PO SCH (07:59)
[2021-10-04] MEDS: diazePAM 5 MG TABLET PO SCH ×2 (07:59→21:03)
[2021-10-04] MEDS: Chlorhexidine Rinse 15 ML MOUTHWASH MM SCH ×2 (07:59→21:03)
[2021-10-04] MEDS: Lactobacillus 1 EACH CAP.SPRINK PO SCH ×2 (07:59→21:03)
[2021-10-04] MEDS: levoFLOXacin 750 MG/150 ML 750 MG/150 ML BAG IVPB SCH (17:21)
[2021-10-04] MEDS: rOPINIRole 1 MG TABLET PO SCH (21:03)
[2021-10-04] MEDS: traZODone 50 MG TABLET PO SCH (21:03)
[2021-10-04] MEDS: Morphine Sulfate 2 MG/ML SYRINGE IVP PRN (21:21)
[2021-10-05] MEDS: Ipratropium 1 PUFF INHALER IH SCH ×6 (04:19→23:33)
[2021-10-05] MEDS: Morphine Sulfate 2 MG/ML SYRINGE IVP PRN ×2 (04:40→20:31)
[2021-10-05] MEDS: *HR* Heparin 5,000 UNIT/ML VIAL SQ SCH ×2 (06:00→17:30)
[2021-10-05] MEDS: Budesonide/Formoterol 160/4.5 1 PUFF INH IH SCH ×2 (07:25→19:57)
[2021-10-05] MEDS: Lactobacillus 1 EACH CAP.SPRINK PO SCH ×2 (09:19→20:19)
[2021-10-05] MEDS: Dexamethasone Sodium Phos/PF 10 MG/ML VIAL IVP SCH (09:19)
[2021-10-05] MEDS: Aspirin 81 MG TAB.CHEW PO SCH (09:19)
[2021-10-05] MEDS: diazePAM 5 MG TABLET PO SCH ×2 (09:19→20:20)
[2021-10-05] MEDS: Chlorhexidine Rinse 15 ML MOUTHWASH MM SCH ×2 (09:21→20:19)
[2021-10-05] MEDS: *HR* OxyCODONE Immed Rel 5 MG TABLET PO PRN (09:25)
[2021-10-05] MEDS: levoFLOXacin 750 MG/150 ML 750 MG/150 ML BAG IVPB SCH (17:29)
[2021-10-05] MEDS: rOPINIRole 1 MG TABLET PO SCH (20:19)
[2021-10-05] MEDS: traZODone 50 MG TABLET PO SCH (20:19)
[2021-10-06 02:25] LABS: BUN/Creatinine Ratio 44 (6-26); Blood Urea Nitrogen 30 mg/dL (8-23); Calcium 8.5 mg/dL (8.6-10.3); Carbon Dioxide 26 mEq/L (23-29); Chloride 105 mEq/L (98-107); Glucose 126 mg/dL (70-105); Magnesium 2.3 mg/dL (1.6-2.6); Osmolality,Calculated 296 (280-300); Phosphorous 2.8 mg/dL (2.7-4.5); Sodium 139 mEq/L (136-145); eGFR For African Americans > 60 (> 60); eGFR For Non-African Americans > 60 (> 60)
[2021-10-06 02:41] LABS: Basophils % 0.3 %; Hematocrit 31.5 % (35.3-44.9); Hemoglobin 10.1 g/dL (11.5-15.4); Immature Granulocytes % 1.2 % (0-4); Immature Platelets 14.1 % (1.1-6.1); Lymphocytes # 0.1 K/mcL (0.6-4.6); Lymphocytes % 1.1 %; Mean Corpuscular HGB Conc 32.1 g/dL (31.6-35.5); Mean Corpuscular Hemoglobin 31.3 pg (28.0-33.3); Mean Corpuscular Volume 97.5 fL (83.0-100.0); Mean Platelet Volume 11.9 fL (9.4-12.4); Monocytes # 0.4 K/mcL (0.0-1.3); Monocytes % 3.8 %; Neutrophils # 10.4 K/mcL (1.6-8.9); Platelet Count 124 K/mcL (140-400); Red Blood Count 3.23 M/mcL (3.82-4.97); Red Cell Distribution Width 16.2 % (11.5-14.5); Segmented Neutrophils % 93.6 %; White Blood Count 11.1 K/mcL (4.3-11.1)
[2021-10-06] MEDS: Ipratropium 1 PUFF INHALER IH SCH ×5 (03:33→20:13)
[2021-10-06] MEDS: *HR* OxyCODONE Immed Rel 5 MG TABLET PO PRN ×2 (04:51→17:52)
[2021-10-06] MEDS: *HR* Heparin 5,000 UNIT/ML VIAL SQ SCH ×2 (04:52→17:52)
[2021-10-06] MEDS: Budesonide/Formoterol 160/4.5 1 PUFF INH IH SCH ×2 (07:11→20:13)
[2021-10-06] MEDS: Dexamethasone Sodium Phos/PF 10 MG/ML VIAL IVP SCH (09:52)
[2021-10-06] MEDS: diazePAM 5 MG TABLET PO SCH ×2 (09:52→20:18)
[2021-10-06] MEDS: Aspirin 81 MG TAB.CHEW PO SCH (09:52)
[2021-10-06] MEDS: Lactobacillus 1 EACH CAP.SPRINK PO SCH ×2 (09:52→20:18)
[2021-10-06] MEDS: Chlorhexidine Rinse 15 ML MOUTHWASH MM SCH ×2 (09:53→20:18)
[2021-10-06] MEDS: Morphine Sulfate 2 MG/ML SYRINGE IVP PRN (12:05)
[2021-10-06] MEDS: Acetylcysteine 10% 2 ML INHSOL IH SCH ×3 (15:45→23:53)
[2021-10-06] MEDS: levoFLOXacin 750 MG/150 ML 750 MG/150 ML BAG IVPB SCH (17:52)
[2021-10-06] MEDS: traZODone 50 MG TABLET PO SCH (20:18)
[2021-10-06] MEDS: rOPINIRole 1 MG TABLET PO SCH (20:18)
[2021-10-06] MEDS: Ipratropium/Albuterol Neb 3 ML IH SCH (23:53)
[2021-10-07] MEDS: *HR* OxyCODONE Immed Rel 5 MG TABLET PO PRN ×2 (00:15→18:10)
[2021-10-07] MEDS: Acetylcysteine 10% 2 ML INHSOL IH SCH ×6 (04:06→23:18)
[2021-10-07] MEDS: Ipratropium/Albuterol Neb 3 ML IH SCH ×6 (04:06→23:17)
[2021-10-07 05:21] LABS: Basophils % 0.2 %; Lymphocytes % 1.8 %
[2021-10-07 05:23] LABS: Hematocrit 31.5 % (35.3-44.9); Immature Granulocytes % 1.5 % (0-4); Immature Platelets 12.1 % (1.1-6.1); Lymphocytes # 0.2 K/mcL (0.6-4.6); Mean Corpuscular HGB Conc 31.7 g/dL (31.6-35.5); Mean Corpuscular Hemoglobin 31.4 pg (28.0-33.3); Mean Corpuscular Volume 99.1 fL (83.0-100.0); Mean Platelet Volume 11.6 fL (9.4-12.4); Monocytes # 0.4 K/mcL (0.0-1.3); Monocytes % 3.7 %; Neutrophils # 10.3 K/mcL (1.6-8.9); Platelet Count 127 K/mcL (140-400); Red Blood Count 3.18 M/mcL (3.82-4.97); Red Cell Distribution Width 16.4 % (11.5-14.5); Segmented Neutrophils % 92.8 %; White Blood Count 11.1 K/mcL (4.3-11.1)
[2021-10-07 05:42] LABS: BUN/Creatinine Ratio 42 (6-26); Blood Urea Nitrogen 28 mg/dL (8-23); Calcium 8.6 mg/dL (8.6-10.3); Carbon Dioxide 28 mEq/L (23-29); Chloride 105 mEq/L (98-107); Glucose 115 mg/dL (70-105); Magnesium 2.1 mg/dL (1.6-2.6); Osmolality,Calculated 294 (280-300); Phosphorous 2.9 mg/dL (2.7-4.5); Potassium 4.3 mEq/L (3.5-5.1); Sodium 139 mEq/L (136-145); eGFR For African Americans > 60 (> 60); eGFR For Non-African Americans > 60 (> 60)
[2021-10-07] MEDS: *HR* Heparin 5,000 UNIT/ML VIAL SQ SCH ×2 (05:48→18:09)
[2021-10-07] MEDS: Budesonide/Formoterol 160/4.5 1 PUFF INH IH SCH ×2 (07:28→20:05)
[2021-10-07] MEDS: Chlorhexidine Rinse 15 ML MOUTHWASH MM SCH ×2 (09:07→20:43)
[2021-10-07] MEDS: Lactobacillus 1 EACH CAP.SPRINK PO SCH ×2 (09:08→20:43)
[2021-10-07] MEDS: Dexamethasone Sodium Phos/PF 10 MG/ML VIAL IVP SCH (09:08)
[2021-10-07] MEDS: Aspirin 81 MG TAB.CHEW PO SCH (09:08)
[2021-10-07] MEDS: diazePAM 5 MG TABLET PO SCH ×2 (09:08→20:43)
[2021-10-07] MEDS: Metoprolol XL (24 HR) Succ 25 MG TAB.ER.24H PO SCH (09:08)
[2021-10-07] MEDS: Morphine Sulfate 2 MG/ML SYRINGE IVP PRN ×2 (13:04→23:25)
[2021-10-07] MEDS: levoFLOXacin 750 MG/150 ML 750 MG/150 ML BAG IVPB SCH (18:10)
[2021-10-07] MEDS: traZODone 50 MG TABLET PO SCH (20:43)
[2021-10-07] MEDS: rOPINIRole 1 MG TABLET PO SCH (20:43)
[2021-10-08] MEDS: Ipratropium/Albuterol Neb 3 ML IH SCH ×4 (03:40→14:41)
[2021-10-08] MEDS: Acetylcysteine 10% 2 ML INHSOL IH SCH ×4 (03:40→14:41)
[2021-10-08] MEDS: *HR* OxyCODONE Immed Rel 5 MG TABLET PO PRN ×2 (04:27→10:33)
[2021-10-08 05:01] LABS: Basophils % 0.2 %; Hemoglobin 9.3 g/dL (11.5-15.4)
[2021-10-08 05:03] LABS: Hematocrit 28.8 % (35.3-44.9); Immature Granulocytes % 1.7 % (0-4); Immature Platelets 10.1 % (1.1-6.1); Lymphocytes # 0.1 K/mcL (0.6-4.6); Lymphocytes % 1.1 %; Mean Corpuscular HGB Conc 32.3 g/dL (31.6-35.5); Mean Corpuscular Hemoglobin 31.8 pg (28.0-33.3); Mean Corpuscular Volume 98.6 fL (83.0-100.0); Mean Platelet Volume 11.6 fL (9.4-12.4); Monocytes # 0.3 K/mcL (0.0-1.3); Monocytes % 2.9 %; Neutrophils # 10.3 K/mcL (1.6-8.9); Nucleated Red Blood Cells 0.2 /100 WBC (0); Platelet Count 127 K/mcL (140-400); Red Blood Count 2.92 M/mcL (3.82-4.97); Red Cell Distribution Width 17.1 % (11.5-14.5); Segmented Neutrophils % 94.1 %; White Blood Count 10.9 K/mcL (4.3-11.1)
[2021-10-08 05:18] LABS: BUN/Creatinine Ratio 33 (6-26); Blood Urea Nitrogen 22 mg/dL (8-23); Calcium 8.5 mg/dL (8.6-10.3); Carbon Dioxide 27 mEq/L (23-29); Chloride 106 mEq/L (98-107); Glucose 129 mg/dL (70-105); Magnesium 2.1 mg/dL (1.6-2.6); Osmolality,Calculated 295 (280-300); Phosphorous 2.6 mg/dL (2.7-4.5); Potassium 4.2 mEq/L (3.5-5.1); Sodium 140 mEq/L (136-145); eGFR For African Americans > 60 (> 60); eGFR For Non-African Americans > 60 (> 60)
[2021-10-08] MEDS: *HR* Heparin 5,000 UNIT/ML VIAL SQ SCH (05:22)
[2021-10-08] MEDS: Budesonide/Formoterol 160/4.5 1 PUFF INH IH SCH (07:33)
[2021-10-08] MEDS: Dexamethasone Sodium Phos/PF 10 MG/ML VIAL IVP SCH (10:17)
[2021-10-08] MEDS: Aspirin 81 MG TAB.CHEW PO SCH (10:17)
[2021-10-08] MEDS: diazePAM 5 MG TABLET PO SCH (10:18)
[2021-10-08] MEDS: Chlorhexidine Rinse 15 ML MOUTHWASH MM SCH (10:18)
[2021-10-08] MEDS: Lactobacillus 1 EACH CAP.SPRINK PO SCH (10:18)
[2021-10-08] MEDS: Metoprolol XL (24 HR) Succ 25 MG TAB.ER.24H PO SCH (10:18)
[2021-10-08] MEDS ORDERED: Cyanocobalamin (B-12) 1,000 MCG/ML VIAL IM SCH (11:15)
[2021-10-08 13:58] LABS: ABG Base Excess 2 mEq/L (-2 to 3); ABG HCO3 28 mEq/L (21-27); ABG Oxygen Saturation 67 % (95-98); ABG PCO2 47 mmHg (35-45); ABG PH 7.38 pH Units (7.32-7.45); ABG PO2 36 mmHg (85-104); ABG TCO2 29 mEq/L (20-26); Blood Gas Modality CPAP/PS; Blood Gas Pressure Support 10 cm H2O
[2021-10-08] MEDS ORDERED: Dexmedetomidine HCl 400 MCG/100 ML MLS IVC SCH (14:00)
[2021-10-08] MEDS: FentaNYL (PF) 1,000 MCG/100 ML IV.SOLN IVC SCH ×2 (14:04→19:16)
[2021-10-08] MEDS ORDERED: *HR* Enoxaparin 60 MG/0.6 ML SYRINGE SQ ONE (14:45)
[2021-10-08] MEDS: Isovue-370 500 ML BOTTLE IVP ONE (15:45)
[2021-10-08] MEDS ORDERED: Lidocaine -MPF 1% 5 ML AMPUL INFILT ONE (16:01)
[2021-10-08] MEDS ORDERED: Norepinephrine 4 MG/254 ML IV.SOLN IVC SCH (16:15)
[2021-10-08] MEDS ORDERED: *HR* LORazepam 2 MG/ML VIAL IVP PRN (16:38)
[2021-10-08] MEDS ORDERED: Morphine Sulfate 2 MG/ML SYRINGE IVP PRN ×2 (16:39→17:28)
[2021-10-08 19:03] VITALS: BP 162/62; PULSE 79; TEMP 97.6; O2SAT 65
== END 2021-10-08 21:20 | disposition expired | DRG 870 ==
LOC: SUATTDRO 20:47 → 2NNU 20:47 → ICNU 22:56
PROVIDERS: ADMIT Internal Medicine; ATTEND Internal Medicine